=== PATIENT | female | born 1995 | race Caucasian/White ===

== ENCOUNTER 2016-06-09 21:18 | Emergency (ER) | payer SELFPAY ==
--- NOTE | 2016-06-09 21:31 | ER Document Report ---
ED Medical Screen (RME) - General Stated Complaint: NAUSEA Mode of Arrival: Medic Information source: Patient Notes: c/o nausea and vomiting, diarrhea for the past 3 days, unable to tolerate PO. LMP 03/16/16, positive home test 3 weeks ago, approximately 11 weeks. Denies fever, chills, vaginal bleeding. , hx of hyperemesis gravidarum with previous pregnancies. Received 600cc IV NS and 4 mg of zofran en route via EMS and patient state she is feeling much better. I have greeted and performed a rapid initial assessment of this patient. A comprehensive ED assessment and evaluation of the patient, analysis of test results and completion of the medical decision making process will be conducted by additional ED providers. Physical Exam - Vital signs Vitals: Temp Pulse Resp BP Pulse Ox 98.5 F 80 18 111/61 98 06/09/16 21:29 06/09/16 21:29 06/09/16 21:29 06/09/16 21:29 06/09/16 21:29 Course - Vital Signs Vital signs: Temp Pulse Resp BP Pulse Ox 98.5 F 80 18 111/61 98 06/09/16 21:29 06/09/16 21:29 06/09/16 21:29 06/09/16 21:29 06/09/16 21:29
[2016-06-09 22:10] LABS: ABSOLUTE MONOCYTES (AUTO) 0.6 10^3/uL (0.1-1.4); ABSOLUTE NEUT (AUTO) 12.2 10^3/uL (1.7-8.2); BASOPHILS % (AUTO) 0.3 % (0-2); HEMATOCRIT 37.9 % (36.0-47.0); HEMOGLOBIN 12.6 g/dL (12.0-15.5); HGB HCT DIFFERENCE -0.1; LYMPHOCYTES % (AUTO) 7.4 % (13-45); MEAN CORPUSCULAR HEMOGLOBIN 26.1 pg (27.0-33.4); MEAN CORPUSCULAR HGB CONC 33.2 g/dL (32.0-36.0); MEAN CORPUSCULAR VOLUME 79 fl (80-97); MONOCYTES % (AUTO) 4.5 % (3-13); RED BLOOD COUNT 4.83 10^6/uL (3.72-5.28); SEGMENTED NEUTROPHILS % (AUTO) 87.8 % (42-78); WHITE BLOOD COUNT 13.8 10^3/uL (4.0-10.5)
[2016-06-09 22:11] LABS: ALANINE AMINOTRANSFERASE 24 U/L (9-52); ALBUMIN 4.8 g/dL (3.5-5.0); ALKALINE PHOSPHATASE 65 U/L (38-126); ANION GAP 14 (5-19); ASPARTATE AMINO TRANSFERASE 19 U/L (14-36); BILIRUBIN,TOTAL 1.4 mg/dL (0.2-1.3); BLOOD UREA NITROGEN 10 mg/dL (7-20); CALCIUM 9.8 mg/dL (8.4-10.2); CARBON DIOXIDE 25 mmol/L (22-30); CHLORIDE 100 mmol/L (98-107); CREATININE RESULT 0.45 mg/dL (0.52-1.25); GLUCOSE 92 mg/dL (75-110); LIPASE 67.4 U/L (23-300); POTASSIUM 3.6 mmol/L (3.6-5.0); SODIUM 138.8 mmol/L (137-145); TOTAL PROTEIN 7.9 g/dL (6.3-8.2)
[2016-06-10] MEDS ORDERED: NORMAL SALINE 1000 ML 1,000 ML IV ONE ×2 (01:22→04:19)
[2016-06-10] MEDS ORDERED: ONDANSETRON HCL INJ/PF 4 MG/2 ML SDV IV ONE ×2 (01:22→04:19)
--- NOTE | 2016-06-10 01:24 | ER Document Report ---
ED General - General Chief Complaint: Nausea/Vomiting Stated Complaint: NAUSEA Mode of Arrival: Medic Notes: Patient is a 20-year-old female who presents with complaint of vomiting and diarrhea and . This is her fourth . She has 2 live children and one previous miscarriage. She had vomiting with all her previous pregnancies. No abdominal pain. No vaginal bleeding. No blood in her emesis. No blood in her stool. No fevers. She came by ambulance. They gave her fluids and Zofran which made her feel much better. It has been several hours since then and she started vomiting again. TRAVEL OUTSIDE OF THE [place] IN LAST 30 DAYS: No - Related Data Allergies/Adverse Reactions: Sulfa (Sulfonamide Antibiotics) Allergy (Verified 06/09/16 21:32) Past Medical History - General Information source: Patient - Social History Smoking Status: Former Smoker Chew tobacco use (# tins/day): No Frequency of alcohol use: None Drug Abuse: None Family History: Reviewed & Not Pertinent Patient has suicidal ideation: No Patient has homicidal ideation: No Renal/ Medical History: Denies: Hx Peritoneal Dialysis Review of Systems - Review of Systems Notes: My Normal Review Basic REVIEW OF SYSTEMS: CONSTITUTIONAL : Denies fever, chills, or sweats. Denies recent illness.ain. RESPIRATORY: Denies cough, cold, or chest congestion. Denies shortness of breath, difficulty breathing, or wheezing. GASTROINTESTINAL: Denies abdominal pain. Recurrent vomiting. Denies constipation. Last BM: GENITOURINARY: Denies difficulty urinating, painful urination, burning, frequency, or blood in urine. FEMALE GENITOURINARY: Denies vaginal bleeding, abnormal or irregular periods. LMP: Currently MUSCULOSKELETAL: Denies neck or back pain or joint pain or swelling. SKIN: Denies rash or skin lesions. NEUROLOGICAL: Denies altered mental status or loss of consciousness. Denies headache. Denies weakness or paralysis or loss of use of either side. Denies problems with gait or speech. Denies sensory or motor loss. ALL OTHER SYSTEMS REVIEWED AND NEGATIVE. Physical Exam - Vital signs Vitals: Temp Pulse Resp BP Pulse Ox 98.5 F 80 18 111/61 98 06/09/16 21:29 06/09/16 21:29 06/09/16 21:29 06/09/16 21:29 06/09/16 21:29 - Notes Notes: General Appearance: Well nourished, alert, cooperative, no acute distress, no obvious discomfort. Vitals: reviewed, See vital signs table. Head: no swelling or tenderness to the head Eyes: PERRL, EOMI, Conjuctiva clear Mouth: No decreasd moisture Neck: Supple, no neck tenderness, No thyromegaly Lungs: No wheezing, No rales, No rhonci, No accessory muscle use, good air exchange bilaterally. Heart: Normal rate, Regular rythm, No murmur, no rub Abdomen: Normal BS, soft, No rigidity, No abdominal tenderness, No guarding, no rebound, no abdominal masses, no organomegaly Extremities: strength 5/5 in all extremities, good pulses in all extremities, no swelling or tenderness in the extremities, no edema. Skin: warm, dry, appropriate color, no rash Neuro: speech clear, oriented x 3, normal affect, responds appropriately to questions. Course - Re-evaluation Re-evalutation: 06/10/16 04:19 Patient's nausea is improving. She still feels a little bit nauseous. She says she still feels a little dehydrated requests a second bag of IV fluids. I will order a repeat bolus and reassess her. - Vital Signs Vital signs: Temp Pulse Resp BP Pulse Ox 97.8 F 65 16 100/50 L 97 06/10/16 06:43 06/10/16 06:43 06/10/16 06:43 06/10/16 06:43 06/10/16 06:43 - Laboratory Result Diagrams: 06/09/16 21:46 06/09/16 21:46 Laboratory results interpreted by me: 06/09/16 06/09/16 06/10/16 21:46 21:46 03:45 WBC 13.8 H MCV 79 L MCH 26.1 L RDW 16.0 H Seg Neutrophils % 87.8 H Lymphocytes % 7.4 L Absolute Neutrophils 12.2 H Creatinine 0.45 L Total Bilirubin 1.4 H Urine Protein 100 H Urine Ketones 80 H Urine HCG, Qual POSITIVE H - Transfer of Care Notes: 06/10/16 05:22 Patient has had no further vomiting since receiving the Zofran here in the ER. She's had 2 L of fluids. She looks well. She has no abdominal pain and no vaginal bleeding. His no indication for an emergent ultrasound this time being she says she has no pain or bleeding. I did discuss with her this study that shows potential heart defects and cleft palate effects when taking Zofran in first trimester. She is understanding of this. 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 Patient has been given Zofran and it has worked well for her ear. Patient will be discharged home Zofran. She's encouraged return to ER shows fevers, intractable vomiting, or she feels unwell. Patient agrees with plan and will be discharged home. 06/10/16 07:52 Dictation of this chart was performed using voice recognition software; therefore, there may be some unintended grammatical errors. Discharge - Discharge Clinical Impression: Vomiting and diarrhea Condition: Good Disposition: HOME, SELF-CARE Additional Instructions: VOMITING: Vomiting (or nausea without vomiting) can be caused by many other different problems. It can mean that something's wrong with the stomach, such as ulcers or inflammation or the intestinal tract, such as appendicitis. But it can also be a symptom of a problem that has nothing to do with the stomach or intestines. Vomiting is common with severe headaches, earaches, tonsillitis, and kidney infections, etc. We see it with pneumonia or heart attacks. Drugs can cause nausea and vomiting. Many abdominal problems cause vomiting; for example, gallstones, kidney stones, pancreatitis, and intestinal obstruction ( blocked bowels). In most cases, curing the vomiting depends on fixing the problem that caused it. For temporary relief, we may use an anti-nausea medicine. For home use, we can prescribe suppositories, chewable pills, pills that dissolve in the mouth, or liquid anti-nausea drugs. If the vomiting seems to be caused by a problem in the stomach, acid-suppressing drugs may be prescribed as well. It's important to avoid dehydration. Sip small amounts of clear liquids ( soft drinks, tea, broth, etc) . Try to take fluids frequently even if you are vomiting to prevent dehydration. Take increasing amounts of fluid and when liquids are being consumed successfully, advance to small amounts of bland food (toast, soups, mashed potatoes, etc.) until you are able to resume a regular diet. Avoid aspirin, tobacco, and alcohol. If the vomiting worsens, if the problem that's making you vomit worsens, or if there's evidence of bleeding in the stomach (such as black, tarry stool, or bloody or black vomit), you should return immediately. Also, return if abdominal pain worsens or becomes localized to one area or you develop high fever. Call your doctor if you aren't improved in 24 hours. DIARRHEA, NON-SPECIFIC: Diarrhea means frequent, watery stools. There are many causes. Any problem that keeps the intestinal tract from absorbing water from the stool can lead to diarrhea. A sudden new diarrhea problem is usually caused by a virus, food sensitivity, toxic bacteria, or drugs. In this case, we expect the problem to go away soon. Testing is done only if you seem seriously ill from the diarrhea. If you have chronic diarrhea, or diarrhea that keeps coming back, we need to find out why. Chronic diarrhea can be due to inflammation of the bowels such as Crohn's disease or ulcerative colitis, food sensitivity such as intolerance to lactose or wheat protein, irritable bowel syndrome, and other problems. If your diarrhea is a significant problem but it's not clear why you have it, we' ll refer you to a specialist for further testing. During an episode of diarrhea, drink small amounts (two to six ounces) of clear liquids (soft drinks, sport drinks, herb teas, broth, etc). Take fluids frequently to prevent dehydration. It's usually not a problem to take mild anti- diarrhea medication such as Kaopectate or Pepto-Bismol. As the diarrhea eases, advance to small amounts of bland food (mashed potato, toast) for 24 hours. Call the physician if blood appears in your vomit or stool, if vomiting lasts longer than 24 hours, if the abdominal pain worsens or becomes localized to one area, if you develop high fever, or if you become lightheaded and weak. INTRAVENOUS (I V) FLUIDS: As part of your care today, you received intravenous (IV) fluids. IV fluids are administered to patients who are dehydrated or to those who have certain chemical (electrolyte) abnormalities that need correcting. ANTINAUSEA MEDICATION: You have been given a medication to suppress nausea and vomiting. This type of medication can be given as a shot, pill, or suppository. It will usually last for many hours. Pills and shots usually last six to eight hours. For the typical illness, only one or two doses of the medication may be necessary. Mild lightheadedness may occur. This type of medicine can cause drowsiness. Do not drive or operate dangerous machinery while under its influence. Do not mix with alcohol. See your doctor at once if you have muscle spasms or tightness, or uncontrollable motions (particularly of the neck, mouth, or jaw). Persistent vomiting or severe lightheadedness should also be evaluated by the physician. FOLLOW-UP CARE: If you have been referred to a physician for follow-up care, call the physician s office for an appointment as you were instructed or within the next two days. If you experience worsening or a significant change in your symptoms, notify the physician immediately or return to the Emergency Department at any time for re-evaluation. Please continue take vitamins. Please follow-up with pari mutuel clerk. Please return to ER immediately if you have intractable vomiting, fevers, but in your stool, abdominal pain, or vaginal bleeding. Prescriptions: Ondansetron [Zofran Odt 4 mg Tablet] 1 tab PO Q4H PRN #20 tab.rapdis PRN Reason: For Nausea/Vomiting
[2016-06-10 04:14] LABS: APPEARANCE,URINE SLIGHTLY-CLOUDY; BILIRUBIN,URINE NEGATIVE (NEGATIVE); GLUCOSE, URINE NEGATIVE (NEGATIVE); KETONES,URINE 80 mg/dL (NEGATIVE); LEUKOCYTE ESTERASE,URINE NEGATIVE (NEGATIVE); NITRITE,URINE NEGATIVE (NEGATIVE); PROTEIN,URINE 100 mg/dL (NEGATIVE); URINE SPECIFIC GRAVITY 1.031; UROBILINOGEN,URINE NEGATIVE mg/dL (<2.0)
[2016-06-10] MEDS ORDERED: ONDANSETRON ODT 4 MG TAB (6 TAB/DSPK) PO PRN (05:25)
[2016-06-10 06:46] VITALS: BP 100/50
== END 2016-06-10 06:46 | disposition home or self-care (01) ==
LOC: ER 21:18
DX: O21.9 Vomiting of pregnancy, unspecified (principal); O26.899 Other specified pregnancy related conditions, unspecified trimester; R19.7 Diarrhea, unspecified; Z3A.00 Weeks of gestation of pregnancy not specified; Z87.891 Personal history of nicotine dependence; Z88.2 Allergy status to sulfonamides; Z87.59 Personal history of other complications of pregnancy, childbirth and the puerperium
CPT/HCPCS: 96376; 99284; 96374; 36415; 83690; 85025; 81025; 80053; 81001; J2405; J7030

== ENCOUNTER 2016-12-02 19:41 | Outpatient (CLI) | payer MEDICAID ==
[2016-12-02 20:37] LABS: AMORPHOUS SEDIMENT,URINE TRACE /HPF; APPEARANCE,URINE SLIGHTLY-CLOUDY; BILIRUBIN,URINE NEGATIVE (NEGATIVE); GLUCOSE, URINE NEGATIVE (NEGATIVE); KETONES,URINE NEGATIVE (NEGATIVE); LEUKOCYTE ESTERASE,URINE TRACE (NEGATIVE); NITRITE,URINE NEGATIVE (NEGATIVE); PROTEIN,URINE NEGATIVE (NEGATIVE); URINE SPECIFIC GRAVITY 1.004; UROBILINOGEN,URINE NEGATIVE mg/dL (<2.0)
[2016-12-02 20:45] LABS: URINE BARBITURATES SCREEN NEGATIVE; URINE METHADONE SCREEN NEGATIVE; URINE PHENCYCLIDINE SCREEN NEGATIVE
[2016-12-02 20:57] LABS: URINE OPIATES LOW NEGATIVE
== END 2016-12-02 21:11 | disposition home or self-care (01) ==
LOC: LC 19:41
PROVIDERS: ATTEND Obstetrics & Gynecology
PROC: 4A1HXCZ Monitoring of Products of Conception, Cardiac Rate, External Approach (ICD-10-PCS; principal; 2016-12-02)
DX: O47.03 False labor before 37 completed weeks of gestation, third trimester (principal); Z3A.36 36 weeks gestation of pregnancy
CPT/HCPCS: 59025; 81001; 87081; 80307; G0480 ×2

== ENCOUNTER 2016-12-29 13:17 | Inpatient (IN) | payer MEDICAID ==
[2016-12-29] MEDS ORDERED: RINGERS SOLUTION,LACTATED 1,000 ML IV PRN (14:03)
[2016-12-29 14:08] LABS: APPEARANCE,URINE CLOUDY; BILIRUBIN,URINE NEGATIVE (NEGATIVE); GLUCOSE, URINE NEGATIVE (NEGATIVE); KETONES,URINE NEGATIVE (NEGATIVE); LEUKOCYTE ESTERASE,URINE LARGE (NEGATIVE); NITRITE,URINE NEGATIVE (NEGATIVE); PROTEIN,URINE NEGATIVE (NEGATIVE); URINE SPECIFIC GRAVITY 1.011
[2016-12-29 14:29] LABS: URINE BARBITURATES SCREEN NEGATIVE; URINE METHADONE SCREEN NEGATIVE; URINE OPIATES LOW NEGATIVE; URINE PHENCYCLIDINE SCREEN NEGATIVE
[2016-12-29] MEDS ORDERED: RINGERS SOLUTION,LACTATED 1,000 ML IV ONE (14:45)
[2016-12-29] MEDS ORDERED: MISOPROSTOL 0.2 MG TABLET ONE (15:19)
[2016-12-29] MEDS ORDERED: LIDOCAINE 1% INJ-PF (10 MG/ML) 30 ML SDV ONE (15:19)
[2016-12-29] MEDS ORDERED: OXYTOCIN/NORMAL SALINE 20 UNIT/1,000 ML RTUINJ ONE (15:19)
[2016-12-29 15:33] LABS: ABSOLUTE BASOPHILS # (AUTO) 0.1 10^3/uL (0.0-0.2); ABSOLUTE EOSINOPHILS # (AUTO) 0.1 10^3/uL (0.0-0.6); ABSOLUTE LYMPHOCYTES (AUTO) 3.1 10^3/uL (0.5-4.7); ABSOLUTE MONOCYTES (AUTO) 1.2 10^3/uL (0.1-1.4); ABSOLUTE NEUT (AUTO) 12.5 10^3/uL (1.7-8.2); BASOPHILS % (AUTO) 0.4 % (0-2); EOSINOPHILS % (AUTO) 0.4 % (0-6); HEMATOCRIT 30.2 % (36.0-47.0); HEMOGLOBIN 9.5 g/dL (12.0-15.5); HGB HCT DIFFERENCE -1.7; LYMPHOCYTES % (AUTO) 18.2 % (13-45); MEAN CORPUSCULAR HEMOGLOBIN 21.4 pg (27.0-33.4); MEAN CORPUSCULAR HGB CONC 31.5 g/dL (32.0-36.0); MEAN CORPUSCULAR VOLUME 68 fl (80-97); MONOCYTES % (AUTO) 7.3 % (3-13); RED BLOOD COUNT 4.44 10^6/uL (3.72-5.28); RED CELL DISTRIBUTION WIDTH 17.9 % (11.5-14.0); SEGMENTED NEUTROPHILS % (AUTO) 73.7 % (42-78); WHITE BLOOD COUNT 16.9 10^3/uL (4.0-10.5)
[2016-12-29] MEDS ORDERED: OXYCODONE-ACETAMINOPHEN 5-325 MG TABLET ONE (15:35)
[2016-12-29] MEDS ORDERED: PROMETHAZINE HCL 25 MG TABLET PO PRN (15:40)
[2016-12-29] MEDS ORDERED: MISOPROSTOL 0.2 MG TABLET PR ONE (15:40)
[2016-12-29] MEDS ORDERED: DIBUCAINE 1% OINTMENT 28 GM TP PRN (15:40)
[2016-12-29] MEDS ORDERED: PSEUDOEPHEDRINE HCL 30 MG TABLET PO PRN (15:40)
[2016-12-29] MEDS ORDERED: ACETAMINOPHEN 650 MG SUPP.RECT PR PRN (15:40)
[2016-12-29] MEDS ORDERED: ACETAMINOPHEN WITH CODEINE #3 TABLET PO PRN (15:40)
[2016-12-29] MEDS ORDERED: MEASLES,MUMPS&RUBELLA VACC/PF 0.5 ML VIAL SUBCUT PRN (15:40)
[2016-12-29] MEDS ORDERED: OXYTOCIN/NORMAL SALINE 20 UNIT/1,000 ML RTUINJ IV PRN (15:40)
[2016-12-29] MEDS ORDERED: DIPHENHYDRAMINE HCL 25 MG CAPSULE PO PRN (15:40)
[2016-12-29] MEDS ORDERED: GLYCERIN/WITCH HAZEL LEAF 1 EACH MED..PAD TP PRN (15:40)
[2016-12-29] MEDS ORDERED: MAGNESIUM HYDROXIDE SUSP 30 ML UDCUP PO PRN (15:40)
[2016-12-29] MEDS ORDERED: DIPH/PERTUSS(ACELL)/TETANUS VAC/PF 0.5 ML SYR (>=10YO) IM PRN (15:40)
[2016-12-29] MEDS ORDERED: PROMETHAZINE HCL INJ 25 MG/1 ML VIAL IV PRN (15:40)
[2016-12-29] MEDS ORDERED: BENZOCAINE/MENTHOL AEROSOL SPRAY 56 ML TOP PRN (15:40)
[2016-12-29] MEDS ORDERED: NA PHOS,M-B/NA PHOS,DI-BA (ADULT) 133 ML ENEMA PR PRN (15:40)
[2016-12-29] MEDS ORDERED: PROMETHAZINE HCL 25 MG SUPP.RECT PR PRN (15:40)
[2016-12-29] MEDS ORDERED: OXYCODONE-ACETAMINOPHEN 5-325 MG TABLET PO ONE (15:42)
--- NOTE | 2016-12-29 17:22 | Delivery Summary ---
Del Sum A-C Datetime Report Generated by CPN: 12/29/2016 17:21 DELIVERY PERSONNEL DELIVERY PERSONNEL: [id number] Delivery Doctor:: Verito Romero CNM Nurse Instructor [employer] Certified:: Verito Romero CNM Labor and Delivery Nurse:: ANGELINA Faustin Nursery Nurse:: LAURIE Padgett RN Nursery Nurse:: Robert Wilder RN MATERNAL INFORMATION Delivery Anesthesia: None Medications After Delivery: Pitocin Bolus-Please Comment; Pitocin Drip 20 Units/1000ml NSS Provider Comments: Pushed and delivered quickly, viable male from OA to ABBY over intact perineum, spont delivery of grossly nl intact placenta, 3 vc, EBL = 300 cc, IV Pitocin, massage and Cytotec 600 mcg via rectum Baby and mom in recovery in stable condition, cord blood to lab Percocet for pain LABOR SUMMARY EDC: 12/30/2016 00:00 No. Babies in Womb: 1 Attempted: No Labor Anesthesia: None LABOR INFORMATION Reason for Induction: Not Applicable Onset of Labor: 12/29/2016 10:00 Complete Dilatation: 12/29/2016 15:15 Oxytocin: N/A Group B Beta Strep: 1 NO GROUP B STREPTOCOCCUS RECOVERED Steroids Given: None Reason Steroids Not Administered: Not Applicable MEMBRANES Membranes Rupture Method: Artificial Rupture of Membranes: 12/29/2016 15:15 Length of Rupture (hr): 0.08 Amniotic Fluid Color: Clear Amniotic Fluid Amount: Small Amniotic Fluid Odor: Normal STAGES OF LABOR Stage 1 hr: 5 Stage 1 min: 15 Stage 2 hr: 0 Stage 2 min: 5 Stage 3 hr: 0 Stage 3 min: 5 Total Time in Labor hr: 5 Total Time in Labor min: 25 VAGINAL DELIVERY Episiotomy: None Laceration Extension: N/A Laceration Type: None Sponge Count Correct: N/A Sharps Count Correct: N/A CSECTION DELIVERY Primary Indication: N/A Secondary Indication: N/A CSection Incidence: N/A Labor: N/A Elective: N/A CSection Incision: N/A BABY A INFORMATION Infant Delivery Date/Time: 12/29/2016 15:20 Method of Delivery: Vaginal Born in Route : No : N/A Forceps: N/A Vacuum Extraction: N/A Shoulder Dystocia : No PRESENTATION/POSITION BABY A Presentation: Cephalic Cephalic Presentation: Vertex Vertex Position: Left Occipital Anterior Breech Presentation: N/A PLACENTA INFORMATION BABY A Placenta Delivery Time : 12/29/2016 15:25 Placenta Method of Delivery: Spontaneous Placenta Status: Delivered SCORES BABY A Heart Rate 1 min: >100 bpm Resp Effort 1 min: Good Cry Reflex Irritability 1 min: Cough or Sneeze or Pulls Away Muscle Tone 1 min: Active Motion Color 1 min: Body [place], Extremities Blue Resuscitation Effort 1 min: Tactile Stimulation SCORE 1 MIN: 9 Heart Rate 5 min: >100 bpm Resp Effort 5 min: Good Cry Reflex Irritability 5 min: Cough or Sneeze or Pulls Away Muscle Tone 5 min: Active Motion Color 5 min: Body [place], Extremities Blue Resuscitation Effort 5 min: Tactile Stimulation SCORE 5 MIN: 9 INFORMATION BABY A Gestational Age at Delivery: 39.6 Gestational Status: Full Term- 39- 40.6 Weeks Outcome : Liveborn Infant Condition : Stable Sex: Male IDENTIFICATION BABY A Verification Date/Time: 12/29/2016 15:45 ID Band Number: [id number] Mother's Name Verified: Yes RN Verifying Infant: B Dilahunt us Additional Verifying Personnel: D Bellavancde RNC WEIGHT/LENGTH BABY A Birthweight (gm): 3430 Weight (lb): 7 Infant Weight (oz): 9 Length (in): 20.00 Infant Length (cm): 50.80 CORD INFORMATION BABY A No. 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
--- NOTE | 2016-12-29 17:43 | Admission Physical ---
Datetime Report Generated by CPN: 12/29/2016 17:42 CURRENT ADMISSION Hx Assessment: The History has been Reviewed and is Current Chief Complaint: Uterine Contractions Indication for Induction: Not Applicable Admit Plan: Admit to Unit; Initiate Labor Protocol ALLERGIES Medication Allergies: Yes Medication Allergies: Sulfa (Sulfonamide Antibiotics) (12/02/2016) Medication Allergies: Sulfa (Sulfonamide Antibiotics) (06/09/2016) Latex: No Latex Allergies OBSTETRICAL HISTORY EDC: 12/30/2016 00:00 : 4 Para: 2 Term: 2 : 0 SAB: 1 IAB: 0 Ectopic: 0 Livin Cesareans: 0 VBACs: 0 Multiple Births: 0 Gestational Diabetes: No Rh Sensitization: No Incompetent Cervix: No RACHID: No Infertility: No ART Treatment: No Uterine Anomaly: No IUGR: No Hx Previous C/S: No Macrosomia: No Hx Loss/Stillborn: No PIH: No Hx : No Placenta Previa/Abruption: No Depression/PP Depression: No PTL/PROM: No Post Hemorrhage: No Current Procedures: Ultrasound; NST Obstetrical History Comments: g1 05/2013 12 weeks 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 [id number] MEDICAL HISTORY Diabetes: No Blood Transfusion: No Pulmonary Disease (Asthma, TB): No Breast Disease: No Hypertension: No Lithographic Printing Machinist Surgery: Yes Heart Disease: No Hosp/Surgery: Yes Autoimmune Disorder: No Anesthetic Complications: No Kidney Disease: No Abnormal Pap Smear: No Neuro/Epilepsy: No Psychiatric Disorders: No Other Medical Diseases: No Hepatitis/Liver Disease: No Significant Family History: No Varicosities/Phlebitis: No Trauma/Violence : No Thyroid Dysfunction: No INFECTIOUS HISTORY Gonorrhea: No Genital Herpes: No Chlamydia: No Tuberculosis: No Syphilis: No Hepatitis: No HIV/AIDS Exposure: No Rash or Viral Illness: No HPV: No PHYSICAL EXAM General: Normal HEENT: Normal Neurologic: Normal Thyroid: Normal Heart: Normal Lungs: Normal Breast: Deferred Back: Normal Abdomen: Normal Genitourinary Exam: Normal Extremities: Normal DTRs: Normal Pelvic Type: Adequate Physical Exam Comments: GBS neg Vital Signs: Reviewed VAGINAL EXAM Dilatation: 10 MEMBRANES Membranes: Bulging FETUS A EGA: 39.6 Monitoring: External US FHR- Baseline: 130 Variability: Moderate 6-25bpm Accelerations: 15X15 Decelerations: None Admit Comment: Admit in active labor @ 39.6, bulging BOW, AROM, clear fluid, Cat 1 strip, start pushing PLANS FOR LABOR AND DELIVERY Labor and Delivery: None Pain Management: Natural Feeding Preference: Both Benefit of Breast Feed Discussed: Yes Circumcision: Yes INFORMED CONSENT Assignment: Reza Cadena DO Signature: with User ID: [email or web address] : with User ID: [email or web address]
[2016-12-29] MEDS: DOCUSATE SODIUM 100 MG CAPSULE PO SCH (18:17)
[2016-12-29] MEDS: FERROUS SULFATE 325 MG TABLET PO SCH (18:17)
[2016-12-29] MEDS: ACETAMINOPHEN WITH CODEINE #3 TABLET PO PRN (19:35)
[2016-12-29] MEDS: IBUPROFEN 800 MG TABLET PO SCH (21:12)
[2016-12-29] MEDS: FAMOTIDINE 20 MG TABLET PO SCH (21:12)
[2016-12-30] MEDS: ACETAMINOPHEN WITH CODEINE #3 TABLET PO PRN ×2 (02:18→11:32)
[2016-12-30] MEDS: IBUPROFEN 800 MG TABLET PO SCH ×3 (05:03→21:10)
[2016-12-30 07:39] LABS: HEMATOCRIT 28.4 % (36.0-47.0); HGB HCT DIFFERENCE -1.4; MEAN CORPUSCULAR HEMOGLOBIN 21.5 pg (27.0-33.4); MEAN CORPUSCULAR HGB CONC 31.7 g/dL (32.0-36.0); MEAN CORPUSCULAR VOLUME 68 fl (80-97); RED CELL DISTRIBUTION WIDTH 17.7 % (11.5-14.0); WHITE BLOOD COUNT 17.6 10^3/uL (4.0-10.5)
--- NOTE | 2016-12-30 08:53 | PDOC PROGRESS REPORT ---
Subjective-OB Subjective: Post Delivery Day: 1 21 year old. Denies any needs at this time, voiding without difficulty, pain well controlled, lochia is stable. Physical Exam (OB) Vital Signs: Temp Pulse Resp BP Pulse Ox 97.8 F 71 14 111/79 100 12/30/16 07:52 12/30/16 07:52 12/30/16 07:52 12/30/16 07:52 12/30/16 07:52 Intake & Output 12/29/16 12/30/16 12/31/16 06:59 06:59 06:59 Weight 62.55 kg - Lochia Lochia Amount: Small 10-25 ml Lochia Color: Rubra/Red - Abdomen Description: Soft, Round Hernia Present: No Fundal Description: Firm, Non-Midline Describe if Not Midline: uterus off to right Fundal Height: u/u - u/2 Objective-Diagnostic Laboratory: 12/30/16 07:08 12/29/16 12/29/16 12/29/16 13:25 15:11 15:11 WBC 16.9 H RBC 4.44 Hgb 9.5 L Hct 30.2 L MCV 68 L MCH 21.4 L MCHC 31.5 L RDW 17.9 H Plt Count 297 Seg Neutrophils % 73.7 Lymphocytes % 18.2 Monocytes % 7.3 Eosinophils % 0.4 Basophils % 0.4 Absolute Neutrophils 12.5 H Absolute Lymphocytes 3.1 Absolute Monocytes 1.2 Absolute Eosinophils 0.1 Absolute Basophils 0.1 Urine Color YELLOW Urine Appearance CLOUDY Urine pH 7.0 Ur Specific [place] 1.011 Urine Protein NEGATIVE Urine Glucose (UA) NEGATIVE Urine Ketones NEGATIVE Urine Blood SMALL H Urine Nitrite NEGATIVE Ur Leukocyte Esterase LARGE H Blood Type A POSITIVE Antibody Screen NEGATIVE 12/30/16 07:08 WBC 17.6 H RBC 4.20 Hgb 9.0 L Hct 28.4 L MCV 68 L MCH 21.5 L MCHC 31.7 L RDW 17.7 H Plt Count 242 Seg Neutrophils % Lymphocytes % Monocytes % Eosinophils % Basophils % Absolute Neutrophils Absolute Lymphocytes Absolute Monocytes Absolute Eosinophils Absolute Basophils Urine Color Urine Appearance Urine pH Ur Specific [place] Urine Protein Urine Glucose (UA) Urine Ketones Urine Blood Urine Nitrite Ur Leukocyte Esterase Blood Type Antibody Screen Assessment and Plan(PN) - Assessment and Plan (1) Anemia Qualifiers: Anemia type: unspecified type Qualified Code(s): D64.9 - Anemia, unspecified Is this a current diagnosis for this admission?: Yes Plan: ferrous sulfate increase dietary iron (2) Vaginal delivery Is this a current diagnosis for this admission?: Yes Plan: routine pp care - Time Spent with Patient Time with patient: Less than 15 minutes Critical Time spent with patient: Less than 15 minutes Medications reviewed and adjusted accordingly: Yes - Disposition Anticipated Discharge: Home Within: within 24 hours
[2016-12-30] MEDS: SENNOSIDES/DOCUSATE 8.6-50 MG 1 EACH TABLET PO SCH (09:43)
[2016-12-30] MEDS: PRENATAL VITAMIN W-O CA NO5/FE FUMARATE/FA CAPSULE PO SCH (09:44)
[2016-12-30] MEDS: FAMOTIDINE 20 MG TABLET PO SCH ×2 (09:44→21:10)
[2016-12-30] MEDS: DOCUSATE SODIUM 100 MG CAPSULE PO SCH ×2 (09:45→17:47)
[2016-12-30] MEDS: FERROUS SULFATE 325 MG TABLET PO SCH ×2 (09:45→17:47)
[2016-12-31] MEDS: ACETAMINOPHEN WITH CODEINE #3 TABLET PO PRN (04:01)
[2016-12-31] MEDS: IBUPROFEN 800 MG TABLET PO SCH (05:52)
[2016-12-31] MEDS: PRENATAL VITAMIN W-O CA NO5/FE FUMARATE/FA CAPSULE PO SCH (09:15)
[2016-12-31] MEDS: DOCUSATE SODIUM 100 MG CAPSULE PO SCH (09:15)
[2016-12-31] MEDS: SENNOSIDES/DOCUSATE 8.6-50 MG 1 EACH TABLET PO SCH (09:15)
[2016-12-31] MEDS: FERROUS SULFATE 325 MG TABLET PO SCH (09:15)
[2016-12-31] MEDS: FAMOTIDINE 20 MG TABLET PO SCH (09:15)
[2016-12-31 09:25] VITALS: BP 112/62
--- NOTE | 2016-12-31 09:58 | PDOC DISCHARGE SUMMARY ---
Final Diagnosis Discharge Date: 12/31/16 - Final Diagnosis (1) Anemia Is this a current diagnosis for this admission?: Yes (2) Vaginal delivery Is this a current diagnosis for this admission?: Yes Discharge Data - Discharge Medication Home Medications: Vit 10/Iron/Folic/Dha [Vitafol-Ob+Dha Combo Pack] 1 each PO DAILY 12/02 Acetaminophen with Codeine [Tylenol #3 Tablet] 2 each PO Q4HP PRN #20 tablet Docusate Sodium [Colace 100 mg Capsule] 100 mg PO BID #60 capsule 12/31/16 Ferrous Sulfate [Feosol 325 mg Tablet] 325 mg PO BID #60 tablet 12/31/16 Ibuprofen [Motrin 800 mg Tablet] 800 mg PO Q8 #60 tablet 12/31/16 Gestational Age: 39.6 Reason(s) for Admission: Onset of Labor Procedures: NST Intrapartum Procedure(s): Spontaneous Vaginal Delivery - [employer] Data Baby 1 Male at 1 minute: 9 at 5 minutes: 9 Weight: 3430 kg Home with Mother: Yes Complications: No - Diagnosis Test Laboratory: Temp Pulse Resp BP Pulse Ox 98.0 F 69 16 112/62 100 12/31/16 09:01 12/31/16 09:01 12/31/16 09:01 12/31/16 09:01 12/31/16 09:01 12/29/16 12/29/16 12/30/16 13:25 15:11 07:08 RBC 4.44 4.20 Hgb 9.5 L 9.0 L Hct 30.2 L 28.4 L Urine Opiates Screen NEGATIVE - Discharge information/Instructions Discharge Activity: Activity As Tolerated, No Lifting Over 10 Pounds, Pelvic Rest, No tub bath Discharge Diet: Regular Disposition: HOME, SELF-CARE Follow [facility] with: [facility] in: 4, Weeks
== END 2016-12-31 11:28 | disposition home or self-care (01) | DRG 775 ==
LOC: LC 13:17 → UNDOADMIN 13:55 → NUR 13:55 → LR 14:17 → 2S 17:42
PROVIDERS: ADMIT Obstetrics & Gynecology; ATTEND Obstetrics & Gynecology
PROC: 10E0XZZ Delivery of Products of Conception, External Approach (ICD-10-PCS; principal; 2016-12-29)
DX: O34.03 Maternal care for unspecified congenital malformation of uterus, third trimester (principal); O99.324 Drug use complicating childbirth; Q51.3 Bicornate uterus; F12.90 Cannabis use, unspecified, uncomplicated; O69.81X0 Labor and delivery complicated by cord around neck, without compression, not applicable or unspecified; Z3A.39 39 weeks gestation of pregnancy; Z37.0 Single live birth; O90.81 Anemia of the puerperium; D64.9 Anemia, unspecified
CPT/HCPCS: 36415; 80307; 81005; 85025; 85027; 86592; 86850; 86900; 86901; G0480; J2590; J3490

== ENCOUNTER 2018-07-13 21:50 | Emergency (ER) | payer SELFPAY ==
[2018-07-14] MEDS ORDERED: NORMAL SALINE 1000 ML 1,000 ML IV ONE (00:37)
--- NOTE | 2018-07-14 01:24 | ER Document Report ---
ED General - General Chief Complaint: Vaginal Bleeding Stated Complaint: VAGINAL BLEEDING Time Seen by Provider: 07/14/18 00:36 Primary Care Provider: [facility] [Provider Group] - Follow up in 3-5 days TRAVEL OUTSIDE OF THE [place] IN LAST 30 DAYS: No - HPI Notes: Patient is a 22-year-old female that presents to the emergency department for chief complaint of vaginal bleeding. Patient reports having a miscarriage on March 16, 2018. She states she did not have another menstrual cycle until May 14, 2018. She states since May 14 she has had daily bleeding. 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 She states usually she would saturate 1 heavy pad a day. She states that in the last few days she has become lightheaded when she stands up. She denies any f ull syncopal events. She denies any chest pain, shortness of breath or palpitations. She has not seen anyone for her symptoms. She does have a history of D&C once previously and has 3 living children. She denies history of irregular menstrual cycles prior to the beginning of this year. She has not been sexually active since the bleeding began in May. She denies any associated dysuria, hematuria, vaginal discharge and pelvic pain. Past Medical History: Negative Past Surgical History: Negative Social History: Denies drugs and alcohol. Daily tobacco. Family History: Reviewed and noncontributory for presenting illness Allergies: Reviewed, see documented allergy list. REVIEW OF SYSTEMS: CONSTITUTIONAL : No fever No chills No diaphoresis No recent illness EENT: No vision changes No congestion No sore throat CARDIOVASCULAR: No chest pain No palpitations RESPIRATORY: No shortness of breath No cough No difficulty breathing GASTROINTESTINAL: No abdominal pain No nausea No vomiting No diarrhea GENITOURINARY: No dysuria No hematuria No difficulty urinating Vaginal bleeding MUSCULOSKELETAL: No back pain No leg pain No arm pain SKIN: No rashes No lesions LYMPHATIC: No swollen, enlarged glands. NEUROLOGICAL: lightheadedness No headache No weakness No paresthesias PSYCHIATRIC: No anxiety No depression PHYSICAL EXAMINATION: Vital signs reviewed, nursing noted reviewed. GENERAL: Well-appearing, well-nourished and in no acute distress. HEAD: Atraumatic, normocephalic. EYES: Eyes appear normal, extraocular movements intact, sclera anicteric, conjunctiva are normal. ENT: nares patent, oropharynx clear without exudates. Moist mucous membranes. NECK: Normal range of motion, supple without lymphadenopathy LUNGS: Breath sounds clear to auscultation bilaterally and equal. No wheezes rales or rhonchi. HEART: Regular rate and rhythm without murmurs ABDOMEN: Soft, nontender, normoactive bowel sounds. No rebound, guarding, or rigidity. No masses appreciated. : Mild amount of dark red vaginal bleeding. No vaginal wall lacerations. Cervix appears normal with no cervical motion tenderness. No adnexal fullness or tenderness. Uterus midline soft and nontender. No external lesions. EXTREMITIES: Nontender, good range of motion, no pitting or edema. NEUROLOGICAL: No focal neurological deficits. Moves all extremities spontaneously Motor and sensory grossly intact on exam. PSYCH: Normal mood, normal affect. SKIN: Warm, Dry, normal turgor, no rashes or lesions noted on exposed skin - Related Data Allergies/Adverse Reactions: Sulfa (Sulfonamide Antibiotics) Allergy (Verified 12/02/16 20:10) Past Medical History - Social History Smoking Status: Current Every Day Smoker Family History: Reviewed & Not Pertinent Renal/ Medical History: Denies: Hx Peritoneal Dialysis Physical Exam - Vital signs Vitals: Temp Pulse Resp BP Pulse Ox 98.3 F 76 16 136/77 H 98 07/13/18 22:29 07/13/18 22:29 07/13/18 22:29 07/13/18 22:29 07/13/18 22:29 Course - Re-evaluation Re-evalutation: 07/14/18 03:07 vitals reviewed. nursing notes reviewed. Patient has some vaginal bleeding without heavy hemorrhage. Her hemoglobin is stable. She did have improvement of her lightheadedness after a liter of normal saline. She has no leukocytosis to suggest infection. There is no sign of BV, trichomoniasis, or yeast vaginitis. Patient is not having any abdominal pain to suggest ovarian torsion. She will be referred to gynecology for further work-up of her dysfunctional uterine bleeding. She is in agreement with this plan of care. She was counseled on staying well-hydrated. She is stable at discharge. Laboratory 07/14/18 07/14/18 07/14/18 01:20 01:20 01:20 WBC 9.4 RBC 5.16 Hgb 14.9 Hct 43.6 MCV 85 MCH 28.9 MCHC 34.2 RDW 14.7 H Plt Count 295 Seg Neutrophils % 48.0 Lymphocytes % 41.9 Monocytes % 7.8 Eosinophils % 1.5 Basophils % 0.8 Absolute Neutrophils 4.5 Absolute Lymphocytes 3.9 Absolute Monocytes 0.7 Absolute Eosinophils 0.1 Absolute Basophils 0.1 Sodium 141.9 Potassium 3.8 Chloride 104 Carbon Dioxide 26 Anion Gap 12 BUN 8 Creatinine 0.52 Est GFR ( Amer) > 60 Est GFR (Non-Af Amer) > 60 Glucose 94 Calcium 10.7 H Urine Color YELLOW Urine Appearance SLIGHTLY-CLOUDY Urine pH 6.0 Ur Specific [place] 1.021 Urine Protein 30 H Urine Glucose (UA) NEGATIVE Urine Ketones TRACE H Urine Blood LARGE H Urine Nitrite NEGATIVE Urine Bilirubin NEGATIVE Urine Urobilinogen 2.0 H Ur Leukocyte Esterase SMALL H Urine WBC (Auto) 28 Urine RBC (Auto) 98 Urine Bacteria (Auto) TRACE Squamous Epi Cells Auto 2 Urine Mucus (Auto) MANY Urine Ascorbic Acid NEGATIVE Urine HCG, Qual NEGATIVE Epi Cells (Wet Prep) Trichomonas (Wet Prep) Vaginal WBC Vaginal RBC Vaginal Yeast 07/14/18 01:20 WBC RBC Hgb Hct MCV MCH MCHC RDW Plt Count Seg Neutrophils % Lymphocytes % Monocytes % Eosinophils % Basophils % Absolute Neutrophils Absolute Lymphocytes Absolute Monocytes Absolute Eosinophils Absolute Basophils Sodium Potassium Chloride Carbon Dioxide Anion Gap BUN Creatinine Est GFR ( Amer) Est GFR (Non-Af Amer) Glucose Calcium Urine Color Urine Appearance Urine pH Ur Specific [place] Urine Protein Urine Glucose (UA) Urine Ketones Urine Blood Urine Nitrite Urine Bilirubin Urine Urobilinogen Ur Leukocyte Esterase Urine WBC (Auto) Urine RBC (Auto) Urine Bacteria (Auto) Squamous Epi Cells Auto Urine Mucus (Auto) Urine Ascorbic Acid Urine HCG, Qual Epi Cells (Wet Prep) 3+ EPITHELIALS SEEN Trichomonas (Wet Prep) NO TRICHOMONAS SEEN Vaginal WBC 1+ WBCS SEEN Vaginal RBC 3+ RBCS SEEN Vaginal Yeast NO YEAST SEEN - Vital Signs Vital signs: Temp Pulse Resp BP Pulse Ox 98.3 F 76 16 136/77 H 98 07/13/18 22:29 07/13/18 22:29 07/13/18 22:29 07/13/18 22:29 07/13/18 22:29 - Laboratory Result Diagrams: 07/14/18 01:20 07/14/18 01:20 Laboratory results interpreted by me: 07/14/18 07/14/18 07/14/18 01:20 01:20 01:20 RDW 14.7 H Calcium 10.7 H Urine Protein 30 H Urine Ketones TRACE H Urine Blood LARGE H Urine Urobilinogen 2.0 H Ur Leukocyte Esterase SMALL H Discharge - Discharge Clinical Impression: Dysfunctional uterine bleeding Condition: Stable Disposition: HOME, SELF-CARE Instructions: Dysfunctional Uterine Bleeding ([facility]) Additional Instructions: Please return to the emergency department if you have any worsening, or concern of your symptoms. Please return to the emergency department if you develop chest pain, difficulty breathing, severe abdominal pain, or ongoing vomiting. Please follow-up with your primary care physician in 2-3 days and any other recommended physicians. If prescribed, take all medications as directed. If you have any questions or concerns do not hesitate to return the emergency department for evaluation. Referrals: [facility] [Provider Group] - Follow up in 3-5 days
[2018-07-14 01:44] LABS: ABSOLUTE BASOPHILS # (AUTO) 0.1 10^3/uL (0.0-0.2); ABSOLUTE EOSINOPHILS # (AUTO) 0.1 10^3/uL (0.0-0.6); ABSOLUTE LYMPHOCYTES (AUTO) 3.9 10^3/uL (0.5-4.7); ABSOLUTE MONOCYTES (AUTO) 0.7 10^3/uL (0.1-1.4); ABSOLUTE NEUT (AUTO) 4.5 10^3/uL (1.7-8.2); BASOPHILS % (AUTO) 0.8 % (0-2); EOSINOPHILS % (AUTO) 1.5 % (0-6); HEMATOCRIT 43.6 % (36.0-47.0); HEMOGLOBIN 14.9 g/dL (12.0-15.5); LYMPHOCYTES % (AUTO) 41.9 % (13-45); MEAN CORPUSCULAR HEMOGLOBIN 28.9 pg (27.0-33.4); MEAN CORPUSCULAR HGB CONC 34.2 g/dL (32.0-36.0); MEAN CORPUSCULAR VOLUME 85 fl (80-97); MONOCYTES % (AUTO) 7.8 % (3-13); PLATELET COUNT 295 10^3/uL (150-450); RED BLOOD COUNT 5.16 10^6/uL (3.72-5.28); RED CELL DISTRIBUTION WIDTH 14.7 % (11.5-14.0); TOTAL CELLS COUNTED % (AUTO) 100 %; WHITE BLOOD COUNT 9.4 10^3/uL (4.0-10.5)
[2018-07-14 01:47] LABS: EPITHELIALS (WET MOUNT) 3+ EPITHELIALS SEEN; RBCS (WET MOUNT) 3+ RBCS SEEN; T.VAGINALIS (WET MOUNT) NO TRICHOMONAS SEEN; WBCS (WET MOUNT) 1+ WBCS SEEN; YEAST (WET MOUNT) NO YEAST SEEN
[2018-07-14 01:48] LABS: APPEARANCE,URINE SLIGHTLY-CLOUDY; BILIRUBIN,URINE NEGATIVE (NEGATIVE); COLOR,URINE YELLOW; GLUCOSE, URINE NEGATIVE (NEGATIVE); KETONES,URINE TRACE mg/dL (NEGATIVE); LEUKOCYTE ESTERASE,URINE SMALL (NEGATIVE); NITRITE,URINE NEGATIVE (NEGATIVE); PROTEIN,URINE 30 mg/dL (NEGATIVE); URINE SPECIFIC GRAVITY 1.021
[2018-07-14 01:57] LABS: ANION GAP 12 (5-19); BLOOD UREA NITROGEN 8 mg/dL (7-20); CALCIUM 10.7 mg/dL (8.4-10.2); CARBON DIOXIDE 26 mmol/L (22-30); CHLORIDE 104 mmol/L (98-107); GLUCOSE 94 mg/dL (75-110); POTASSIUM 3.8 mmol/L (3.6-5.0); SODIUM 141.9 mmol/L (137-145)
[2018-07-14 03:14] LABS: CHLAM PCR NOT DETECTED (NOT DETECT); GON PCR NOT DETECTED (NOT DETECT)
[2018-07-14 03:55] VITALS: BP 128/68
== END 2018-07-14 03:55 | disposition home or self-care (01) ==
LOC: ER 21:50
DX: N93.8 Other specified abnormal uterine and vaginal bleeding (principal); R42 Dizziness and giddiness; Z87.59 Personal history of other complications of pregnancy, childbirth and the puerperium; Z88.2 Allergy status to sulfonamides
CPT/HCPCS: 99284; 96360; 36415; 87210; 85025; 81025; 80048; 81001; 87491; 87591; J7030

== ENCOUNTER 2018-11-17 19:50 | Emergency (ER) | payer SELFPAY ==
[2018-11-17] MEDS ORDERED: NORMAL SALINE 1000 ML 1,000 ML IV ONE (20:36)
[2018-11-17] MEDS ORDERED: ACETAMINOPHEN 325 MG TABLET PO ONE (20:36)
--- NOTE | 2018-11-17 20:39 | ER Document Report ---
ED Medical Screen (RME) - General Chief Complaint: Headache Stated Complaint: HEADACHE Time Seen by Provider: 11/17/18 20:25 Notes: Patient is a 23-year-old female who presents the emergency department with a chief complaint of pressure in her head. She states that she has had her pressure in her head for the past week. She took some ibuprofen around 1300 and has had little relief. Patient dates that she has a deviated symptom and states that she has history of sinus infections in the past, but not recently. She states that she also felt weak, shaky, and dizzy. 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 Patient states that she has not been drinking a lot of fluids. Exam: Tenderness to frontal sinuses. I have greeted and performed a rapid initial assessment of this patient. A comprehensive ED assessment and evaluation of the patient, analysis of test results and completion of medical decision making process will be conducted by an additional ED providers. TRAVEL OUTSIDE OF THE [place] IN LAST 30 DAYS: No - Related Data Allergies/Adverse Reactions: Sulfa (Sulfonamide Antibiotics) Allergy (Verified 11/17/18 20:22) Past Medical History - Social History Frequency of alcohol use: Rare Drug Abuse: Marijuana Renal/ Medical History: Denies: Hx Peritoneal Dialysis Past Surgical History: Reports: Hx Gynecologic Surgery - D&C Physical Exam - Vital signs Vitals: Temp Pulse Resp BP Pulse Ox 98.1 F 91 19 107/70 100 11/17/18 19:58 11/17/18 19:58 11/17/18 19:58 11/17/18 19:58 11/17/18 19:58 Course - Vital Signs Vital signs: Temp Pulse Resp BP Pulse Ox 98.1 F 91 19 107/70 100 11/17/18 19:58 11/17/18 19:58 11/17/18 19:58 11/17/18 19:58 11/17/18 19:58
[2018-11-17 21:13] LABS: ABSOLUTE BASOPHILS # (AUTO) 0.1 10^3/uL (0.0-0.2); ABSOLUTE EOSINOPHILS # (AUTO) 0.1 10^3/uL (0.0-0.6); ABSOLUTE LYMPHOCYTES (AUTO) 2.1 10^3/uL (0.5-4.7); ABSOLUTE MONOCYTES (AUTO) 0.7 10^3/uL (0.1-1.4); ABSOLUTE NEUT (AUTO) 4.3 10^3/uL (1.7-8.2); BASOPHILS % (AUTO) 1.1 % (0-2); EOSINOPHILS % (AUTO) 1.3 % (0-6); HEMATOCRIT 36.5 % (36.0-47.0); HEMOGLOBIN 11.7 g/dL (12.0-15.5); LYMPHOCYTES % (AUTO) 28.6 % (13-45); MEAN CORPUSCULAR HEMOGLOBIN 23.2 pg (27.0-33.4); MEAN CORPUSCULAR VOLUME 73 fl (80-97); MONOCYTES % (AUTO) 9.7 % (3-13); PLATELET COUNT 294 10^3/uL (150-450); RED BLOOD COUNT 5.04 10^6/uL (3.72-5.28); RED CELL DISTRIBUTION WIDTH 17.9 % (11.5-14.0); SEGMENTED NEUTROPHILS % (AUTO) 59.3 % (42-78); TOTAL CELLS COUNTED % (AUTO) 100 %; WHITE BLOOD COUNT 7.2 10^3/uL (4.0-10.5)
[2018-11-17 21:29] LABS: APPEARANCE,URINE SLIGHTLY-CLOUDY; BILIRUBIN,URINE NEGATIVE (NEGATIVE); COLOR,URINE YELLOW; GLUCOSE, URINE NEGATIVE (NEGATIVE); KETONES,URINE NEGATIVE (NEGATIVE); LEUKOCYTE ESTERASE,URINE MODERATE (NEGATIVE); NITRITE,URINE NEGATIVE (NEGATIVE); PROTEIN,URINE 30 mg/dL (NEGATIVE); URINE SPECIFIC GRAVITY 1.025; UROBILINOGEN,URINE NEGATIVE mg/dL (<2.0)
[2018-11-17 21:30] LABS: ALBUMIN 4.8 g/dL (3.5-5.0); ALKALINE PHOSPHATASE 56 U/L (38-126); ANION GAP 10 (5-19); ASPARTATE AMINO TRANSFERASE 27 U/L (14-36); BILIRUBIN,DIRECT 0.2 mg/dL (0.0-0.4); BILIRUBIN,TOTAL 0.3 mg/dL (0.2-1.3); BLOOD UREA NITROGEN 10 mg/dL (7-20); CALCIUM 9.6 mg/dL (8.4-10.2); CARBON DIOXIDE 25 mmol/L (22-30); CHLORIDE 104 mmol/L (98-107); GLUCOSE 95 mg/dL (75-110); POTASSIUM 4.5 mmol/L (3.6-5.0); TOTAL PROTEIN 7.5 g/dL (6.3-8.2)
[2018-11-17] MEDS ORDERED: CEPHALEXIN 500 MG CAPSULE PO ONE (22:25)
[2018-11-17] MEDS ORDERED: NORMAL SALINE 1000 ML 500 ML IV ONE (22:25)
--- NOTE | 2018-11-17 22:55 | ER Document Report ---
ED General - General Chief Complaint: Headache Stated Complaint: HEADACHE Time Seen by Provider: 11/17/18 20:25 Primary Care Provider: [facility] [Provider Group] - Follow up as needed [facility] [Provider Group] - Follow up as needed Notes: RME Provider note: Patient is a 23-year-old female who presents the emergency department with a chief complaint of pressure in her head. She states that she has had her pressure in her head for the past week. She took some ibuprofen around 1300 and has had little relief. Patient dates that she has a deviated symptom and states that she has history of sinus infections in the past, but not recently. She states that she also felt weak, shaky, and dizzy. 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 Patient states that she has not been drinking a lot of fluids. Exam: Tenderness to frontal sinuses. MY HPI: Patient is a 23-year-old female presents to the emergency department for generalized headache. Patient states is mostly in her forehead and has been for the last week. Patient states she takes Motrin at home which typically gets rid of the pain but the pain was severe tonight which is why she presents to the emergency room. Patient's denying any cough, congestion, rhinorrhea, fevers. She is complaining of generalized photophobia but is denying any change in her vision. Patient's denying any nausea, vomiting, diarrhea. States she does have urinary frequency but is denying any dysuria. Patient states migraines do run in her family. States she typically has 3 headaches a month that "take me off my feet." States she typically has to take Motrin and then goes to sleep and they typically resolve. Patient does not have a primary care provider and has never seen a neurologist for the same. TRAVEL OUTSIDE OF THE [place] IN LAST 30 DAYS: No - Related Data Allergies/Adverse Reactions: Sulfa (Sulfonamide Antibiotics) Allergy (Verified 11/17/18 20:22) Past Medical History - General Information source: Patient - Social History Smoking Status: Current Every Day Smoker Frequency of alcohol use: Rare Drug Abuse: Marijuana Family History: Reviewed & Not Pertinent Patient has suicidal ideation: No Patient has homicidal ideation: No Renal/ Medical History: Denies: Hx Peritoneal Dialysis Past Surgical History: Reports: Hx Gynecologic Surgery - D&C Review of Systems - Review of Systems Constitutional: denies: Fever EENT: See HPI Cardiovascular: No symptoms reported Respiratory: No symptoms reported Gastrointestinal: See HPI Genitourinary: See HPI Female Genitourinary: See HPI Musculoskeletal: No symptoms reported Skin: No symptoms reported Hematologic/Lymphatic: No symptoms reported Neurological/Psychological: See HPI Physical Exam - Vital signs Vitals: Temp Pulse Resp BP Pulse Ox 98.1 F 91 19 107/70 100 11/17/18 19:58 11/17/18 19:58 11/17/18 19:58 11/17/18 19:58 11/17/18 19:58 - Notes Notes: GENERAL: Alert, interacts well. No acute distress. HEAD: Normocephalic, atraumatic. No frontal, maxillary, ethmoid sinus tenderness noted. EYES: Pupils equal, round, and reactive to light. Extraocular movements intact. ENT: Oral mucosa moist, tongue midline. Nares patent, no nasal septal hematoma, TM's intact. NECK: Full range of motion. Supple. Trachea midline. LUNGS: Clear to auscultation bilaterally, no wheezes, rales, or rhonchi. No respiratory distress. HEART: Regular rate and rhythm. No murmur ABDOMEN: Soft, non-tender. Non-distended. Bowel sounds present in all 4 quadrants. EXTREMITIES: Moves all 4 extremities spontaneously. No edema, normal radial and dorsalis pedis pulses bilaterally. No cyanosis. BACK: no cervical, thoracic, lumbar midline tenderness. No saddle anesthesia, normal distal neurovascular exam. NEUROLOGICAL: Alert and oriented x3. Normal speech. cranial nerves II through XII grossly intact. PSYCH: Normal affect, normal mood. SKIN: Warm, dry, normal turgor. No rashes or lesions noted. Course - Re-evaluation Re-evalutation: 11/17/18 22:54 RME provider note states patient did have frontal sinus tenderness. Upon my examination patient's denying any frontal sinus tenderness, maxillary sinus tenderness, ethmoid sinus tenderness. She has been treated with fluid resuscitation in the emergency room and Tylenol. States she overall feels a lot better. I have discussed urine results with her at bedside. Discussed continued use of antibiotics following up with primary care provider. I discussed use of [facility] as patient is uninsured. At this time will discharge with return precautions and follow-up recommendations. Verbal discharge instructions given a the bedside and opportunity for questions given. Medication warnings reviewed. Patient is in agreement with this plan and has verbalized understanding of return precautions and the need for primary care follow-up in the next 24-72 hours. This medical record was dictated with voice recognizing software. There may be grammatical, syntax errors that are unintended. - Vital Signs Vital signs: Temp Pulse Resp BP Pulse Ox 97.8 F 72 16 107/67 100 11/17/18 23:20 11/17/18 23:20 11/17/18 23:11 11/17/18 23:20 11/17/18 23:20 - Laboratory Result Diagrams: 11/17/18 20:55 11/17/18 20:55 Laboratory results interpreted by me: 11/17/18 11/17/18 20:55 21:10 Hgb 11.7 L MCV 73 L MCH 23.2 L RDW 17.9 H Urine Protein 30 H Urine Blood SMALL H Ur Leukocyte Esterase MODERATE H Discharge - Discharge Clinical Impression: Urinary tract infection, Head ache Condition: Stable Disposition: HOME, SELF-CARE Instructions: Cephalexin ([facility]), Headache ([facility]), Urinary Tract Infection ([facility]) Additional Instructions: You have been seen and treated in the emergency department for a urinary tract infection and a headache. Please make sure you are staying well-hydrated and taking antibiotics as prescribed. Please also make sure you follow-up with [facility], phone numbers provided. Please return to the emergency room for any further concerns. Prescriptions: RX: Cephalexin Monohydrate [Keflex 500 mg Capsule] 500 mg PO BID 7 Days #14 capsule Forms: Return to Work Referrals: [facility] [Provider Group] - Follow up as needed [facility] [Provider Group] - Follow up as needed
[2018-11-17 23:25] VITALS: BP 107/67
--- NOTE | 2018-11-18 09:13 | EKG REPORT ---
SEVERITY:- ABNORMAL ECG - SINUS RHYTHM : Confirmed by: Jameson Lai MD 18-Nov-2018 09:12:33
== END 2018-11-17 23:25 | disposition home or self-care (01) ==
LOC: ER 19:50
DX: N39.0 Urinary tract infection, site not specified (principal); R51 Headache; R42 Dizziness and giddiness; F17.200 Nicotine dependence, unspecified, uncomplicated; Z88.2 Allergy status to sulfonamides
CPT/HCPCS: 93005; 36415; 87086; 85025; 81025; 87088; 80053; 81001; 93010; J7030; 87186; 96360; 99284